=== PATIENT | female | born 1970 | race Caucasian/White ===

== ENCOUNTER → 2016-12-19 | Outpatient (REF) | payer OTHER ==
[~2016-12-19] MED LIST: AUGM875T28 PO; MOTR200T44 PO; OXYC1TAB23 PO; PERI0.126 MT
== END ==
LOC: M LAB REF 17:27
PROVIDERS: ATTEND Internal Medicine
DX: M26.602 Left temporomandibular joint disorder, unspecified (principal); E78.5 Hyperlipidemia, unspecified

== ENCOUNTER → 2018-03-07 | Outpatient (REF) | payer OTHER ==
[2018-03-07 19:08] LABS: RHEUMATOID FACTOR QUANT < 10.0 IU/ML (<15.0)
[2018-03-10 00:06] LABS: ANTI-CHROMATIN ANTIBODIES <0.2 AI (0.0-0.9)
[2018-03-10 00:06] LABS: ANTI DOUBLE STRAND-DNA AB 3 IU/mL (0-9); Lyme Disease IgG/IgM Antibodie <0.91 ISR (0.00-0.90); Lyme Disease IgM Ab Quantitati <0.80 index (0.00-0.79); RNP ANTIBODY 0.9 AI (0.0-0.9); SMITHS ANTIBODY < 0.2 AI (0.0-0.9); SSA SJOGRENS A <0.2 AI (0.0-0.9); SSB SJOGRENS B <0.2 AI (0.0-0.9)
== END ==
LOC: M LAB REF 17:39
DX: M25.50 Pain in unspecified joint (principal)

== ENCOUNTER 2019-02-05 15:43 | Emergency (ER) | payer OTHER ==
[~2019-02-05] VITALS: Ht 160 cm; Wt 93.9 kg
[2019-02-05] MEDS ORDERED: PRED20TA (15:51)
[2019-02-05] MEDS ORDERED: MONT10TA2 (15:51)
[2019-02-05] MEDS ORDERED: ROSU10TA6 (15:51)
[2019-02-05] MEDS ORDERED: PARO12.5 (15:51)
[2019-02-05 16:27] LABS: BASO % 0.3 % (0.0-1.0); EOS % 0.1 % (0.0-3.0); HEMATOCRIT 44.7 % (36.0-47.0); HEMOGLOBIN 15.2 g/dl (12.0-15.5); LYMPH # 1.6 10^3/uL (1.5-5.0); LYMPH % 13.4 % (24.0-44.0); MEAN CORPUSCULAR HEMOGLOBIN 32.5 pg (27.0-33.0); MEAN CORPUSCULAR VOLUME 95.5 fl (80.0-96.0); MONO # 0.5 10^3/uL (0.0-0.8); MONO % 4.3 % (0.0-5.0); NEUTROPHILS # 9.7 10^3/uL (1.5-8.5); NEUTROPHILS % 80.6 % (36.0-66.0); PLATELET COUNT, AUTOMATED 239 10^3/uL (150-450); RED BLOOD COUNT 4.68 10^6/uL (4.00-5.40)
[2019-02-05 16:38] LABS: INR 0.83; PROTHROMBIN TIME 11.1 SECONDS (11.8-14.0)
--- NOTE | 2019-02-05 16:47 | REP ---
Clinical: Acute chest pain . Comparison: None . Technique: PA and lateral. Findings: The mediastinum and cardiac silhouette are normal. The lung soler are clear and without acute consolidation, effusion, or pneumothorax. The skeletal structures are intact and normal. Impression: 1. No acute cardiopulmonary process. Electronically Signed by Tyrese Cornejo MD 02/05/2019 04:39 P
[2019-02-05 16:59] LABS: ALBUMIN 3.6 GM/DL (3.2-5.2); ALT/SGPT 35 U/L (12-78); BILIRUBIN,DIRECT < 0.1 MG/DL (0.0-0.2); BILIRUBIN,TOTAL 0.4 MG/DL (0.2-1.0); BLOOD UREA NITROGEN 20 MG/DL (7-18); CALCIUM LEVEL 9.1 MG/DL (8.5-10.1); CARBON DIOXIDE LEVEL 27 MEQ/L (21-32); CHLORIDE LEVEL 105 MEQ/L (98-107); CK-MB VALUE MASS < 1.0 NG/ML (<3.6); CPK CREATINE PHOSPHOKINASE 58 U/L (26-192); CREATININE FOR GFR 1.12 MG/DL (0.55-1.30); FREE T4 0.81 NG/DL (0.76-1.46); GLOMERULAR FILTRATION RATE 54.8 (>51); GLUCOSE, FASTING 258 MG/DL (70-100); LIPASE 148 U/L (73-393); MB/CK RELATIVE INDEX 1.72 (< OR =4); POTASSIUM SERUM 4.2 MEQ/L (3.5-5.1); SODIUM LEVEL 139 MEQ/L (136-145); THYROID STIMULATING HORMONE 0.953 uIU/ML (0.358-3.740); TOTAL PROTEIN 6.8 GM/DL (6.4-8.2); TROPONIN I < 0.02 NG/ML (< 0.10)
[2019-02-05 17:45] VITALS: BP 119/60
--- NOTE | 2019-02-07 06:47 | ECGEPIP ---
[facility] - ED Test Date: 2019-02-05 Pat Name: TAPAN RAMSEY Department: Room: - Gender: Female Slps: JACE : 1970 Requested By: IRINA Jennings Order Number: [id number] Reading MD: Will Ma Measurements Intervals [place] Rate: 82 P: 42 WA: 145 QRS: 52 QRSD: 85 T: 40 QT: 367 QTc: 429 Interpretive Statements SINUS RHYTHM BENIGN EARLY REPOLARIZATION NO PRIORS FOR COMPARISON Electronically Signed on 02-07-2019 6:46:59 EDT by Will Ma
== END 2019-02-05 18:27 | disposition left against medical advice (07) ==
LOC: M ED 15:43
DX: R07.9 Chest pain, unspecified (principal); Z53.21 Procedure and treatment not carried out due to patient leaving prior to being seen by health care provider

== ENCOUNTER → 2019-02-13 | Outpatient (REF) | payer OTHER ==
[~2019-02-13] MED LIST changes: +MONT10TA2; +PARO12.5; +PRED20TA; +ROSU10TA6
[2019-02-20 00:06] LABS: ANTI DS-DNA AB <1:10 titer (.); ANTI-CHROMATIN ANTIBODIES <0.2 AI (0.0-0.9); RNP ANTIBODY 0.3 AI (0.0-0.9); SMITHS ANTIBODY < 0.2 AI (0.0-0.9); SSA SJOGRENS A <0.2 AI (0.0-0.9); SSB SJOGRENS B <0.2 AI (0.0-0.9)
== END ==
LOC: M LAB REF 17:04
PROVIDERS: ATTEND Internal Medicine
DX: H15.002 Unspecified scleritis, left eye (principal)

== ENCOUNTER → 2019-02-21 | Outpatient (REF) | payer OTHER | LOC: M LAB REF 18:09 | PROVIDERS: ATTEND Internal Medicine | DX: H15.002 Unspecified scleritis, left eye (principal); M25.50 Pain in unspecified joint ==

== ENCOUNTER → 2019-03-11 | Outpatient (REF) | payer OTHER ==
[2019-03-11 22:11] LABS: TOTAL PROTEIN 6.8 GM/DL (6.4-8.2)
[2019-03-11 22:20] LABS: URINE TOTAL PROTEIN 6.4 MG/DL (0-12)
[2019-03-13 10:56] LABS: ALBUMIN 4.17 GM/DL (3.29-5.55)
[2019-03-13 10:57] LABS: ALBUMIN % 61.3 % (55.8-66.1); ALPHA-1-GLOBULIN % 4.9 % (2.9-4.9); ALPHA-1-GLOBULINS 0.33 GM/DL (0.17-0.41); ALPHA-2-GLOBULINS 0.82 GM/DL (0.42-0.99); ALPHA-2-GLOBULINS % 12.1 % (7.1-11.8); BETA-1-GLOBULINS 0.38 GM/DL (0.28-0.60); BETA-2-GLOBULINS 0.32 GM/DL (0.19-0.55); BETA-2-GLOBULINS % 4.7 % (3.2-6.5); GAMMA GLOBULIN % 11.4 % (11.1-18.8); GAMMA GLOBULINS 0.78 GM/DL (0.65-1.58)
[2019-03-13 11:10] LABS: UPEP INTERPRETATION NO M-SPIKE NOTED; URINE VOLUME RANDOM ML
[2019-03-13 14:07] LABS: Lyme Disease IgG/IgM Antibodie <0.91 ISR (0.00-0.90); Lyme Disease IgM Ab Quantitati <0.80 index (0.00-0.79)
== END ==
LOC: M LAB REF 16:28
PROVIDERS: ATTEND Internal Medicine
DX: M25.50 Pain in unspecified joint (principal)

== ENCOUNTER → 2019-05-19 | Outpatient (REF) | payer OTHER | LOC: M LAB REF 16:29 | PROVIDERS: ATTEND Internal Medicine | DX: M25.50 Pain in unspecified joint (principal); H15.002 Unspecified scleritis, left eye ==

== ENCOUNTER → 2019-10-24 | Outpatient (REF) | payer OTHER, BC ==
[~2019-10-24] MED LIST changes: -MONT10TA2; +MONT10TA4; -PARO12.5; +PARO12.510
== END ==
LOC: M LAB REF 17:26
PROVIDERS: ATTEND Internal Medicine
DX: N95.0 Postmenopausal bleeding (principal); Z12.31 Encounter for screening mammogram for malignant neoplasm of breast

== ENCOUNTER → 2019-11-24 | Outpatient (CLI) | payer OTHER, BC | LOC: M LABSMTC 09:56 | PROVIDERS: ATTEND Anesthesiology | DX: Z03.818 Encounter for observation for suspected exposure to other biological agents ruled out (principal); Z11.59 Encounter for screening for other viral diseases | CPT/HCPCS: C9803; U0003 ==

== ENCOUNTER 2019-11-27 13:28 | Day surgery (SDC) | payer OTHER, BC ==
[~2019-11-27] VITALS: Ht 160 cm; Wt 91.2 kg
[~2019-11-27 13:28] MED LIST changes: +LIDOCAINE 2% 100MG/5ML SDV (FOR ANES.) As Ordered ONE; +LR 1,000 ML IV ONE; +MIDAZOLAM INJ 2MG/2ML VIAL (J2250 PER 1MG) As Ordered ONE; +fentaNYL 100 MCG/2 ML INJECTION (J3010) As Ordered ONE; +propofoL 200 MG/20 ML VIAL As Ordered ONE
[2019-11-27 14:33] LABS: HEMATOCRIT 49.1 % (36.0-47.0); HEMOGLOBIN 16.4 g/dl (12.0-15.5); MEAN CORPUSCULAR HEMOGLOBIN 31.3 pg (27.0-33.0); MEAN CORPUSCULAR HGB CONC 33.4 g/dl (32.0-36.5); MEAN CORPUSCULAR VOLUME 93.7 fl (80.0-96.0); PLATELET COUNT, AUTOMATED 216 10^3/uL (150-450); RED BLOOD COUNT 5.24 10^6/uL (4.00-5.40); WHITE BLOOD COUNT 8.7 10^3/uL (4.0-10.0)
[2019-11-27 14:44] LABS: BLOOD UREA NITROGEN 11 MG/DL (7-18); CALCIUM LEVEL 9.3 MG/DL (8.5-10.1); CARBON DIOXIDE LEVEL 26 MEQ/L (21-32); CHLORIDE LEVEL 106 MEQ/L (98-107); CREATININE FOR GFR 0.84 MG/DL (0.55-1.30); GLOMERULAR FILTRATION RATE > 60.0 (>51); GLUCOSE, FASTING 90 MG/DL (70-100); POTASSIUM SERUM 4.1 MEQ/L (3.5-5.1); SODIUM LEVEL 140 MEQ/L (136-145)
[2019-11-27] MEDS ORDERED: CHLOROPROCAINE PRES. FREE 3% 20ML VIAL As Ordered ONE (15:19)
[2019-11-27] MEDS ORDERED: KETOROLAC 60MG 2ML VIAL As Ordered ONE (15:44)
[2019-11-27] MEDS ORDERED: ONDANSETRON 4MG/2ML VIAL As Ordered ONE (15:44)
[2019-11-27] MEDS ORDERED: fentaNYL 100 MCG/2 ML INJECTION (J3010) IV PRN (16:30)
[2019-11-27] MEDS ORDERED: LR 1,000 ML IV SCH ×2 (16:30)
[2019-11-27] MEDS ORDERED: IBUPROFEN 600MG TAB PO PRN (16:30)
[2019-11-27] MEDS ORDERED: PERCOCET 5MG/325MG TAB PO PRN (16:30)
[2019-11-27] MEDS ORDERED: ONDANSETRON 4MG/2ML VIAL IV PRN (16:30)
[2019-11-27] MEDS ORDERED: METOCLOPRAMIDE INJ 10MG/2ML VIAL (J2765 PER 1) IV PRN (16:30)
[2019-11-27 18:20] VITALS: BP 140/81
--- NOTE | 2019-11-28 17:18 | ECGEPIP ---
[facility] Test Date: 2019-11-27 Pat Name: TAPAN RAMSEY Department: Room: - Gender: Female Body Care Manager: NELIDA : 1970 Requested By: Sebastian Singleton Order Number: [id number] Reading MD: Giovani Mojica Measurements Intervals [place] Rate: 69 P: 37 SD: 158 QRS: 28 QRSD: 76 T: 29 QT: 403 QTc: 435 Interpretive Statements SINUS RHYTHM Last tracing on 02/05/19, 16:01. NO SIGNIFICANT CHANGES Electronically Signed on 11-28-2019 17:18:03 EDT by Giovani Mojica
--- NOTE | 2019-12-02 18:19 | RO ---
DATE OF PROCEDURE: 11/27/2019 PREOPERATIVE DIAGNOSIS: Postmenopausal bleeding, abnormal sono. POSTOPERATIVE DIAGNOSIS: Polyp. PROCEDURE: Dilation and curettage (D and C), hysteroscopy, MyoSure resection with complete removal of the polyp. SURGEON: Dr. Corinne Stack COFFEE URN ATTENDANT: None. ANESTHESIA: Spinal. DESCRIPTION OF PROCEDURE: Colin was brought to the operating room where sufficient spinal anesthesia was induced, and she was prepped, draped and positioned in the usual sterile fashion. With the bladder emptied and the Wai retractor placed so the cervix could be visualized, grasped with a single-tooth tenaculum and then this retroverted uterus was carefully dilated and the hysteroscope placed. Visualization of the endometrial cavity showed, as noted on the pictures, a lingular polyp that arose from the anterior left fundal uterus but essentially filled the cavity at the corpus. And using the MyoSure Resector Reach, we were able to completely remove this and sample the endometrium circumferentially and then, of course, we passed the curette for curettage as well. She had normal tubal ostia and a normal contour within the uterus and no other visible lesions, and after the resection and the curettage, the procedure was ended. Estimated blood loss for the procedure was maybe 5 mL. Fluid replacement was crystalloid. Specimens: The polyp and the endometrial sampling were all sent for pathologic evaluation. Complications: None. Condition and Disposition: Colin tolerated the procedure well and was recovering in the recovery room in good condition.
== END 2019-11-27 18:25 | disposition home or self-care (01) ==
LOC: M SDC 13:28
PROVIDERS: ATTEND Obstetrics & Gynecology
DX: N85.01 Benign endometrial hyperplasia (principal); N95.0 Postmenopausal bleeding
CPT/HCPCS: 36415; 58558; 80048; 81025; 85027; 88305; 93005; J1885; J2250; J2400; J2405; J3010

== ENCOUNTER → 2021-05-24 | Outpatient (REF) | payer OTHER, BC ==
[~2021-05-24] MED LIST changes: -LIDOCAINE 2% 100MG/5ML SDV (FOR ANES.) As Ordered ONE; -LR 1,000 ML IV ONE; -MIDAZOLAM INJ 2MG/2ML VIAL (J2250 PER 1MG) As Ordered ONE; +MONT10TA10; -MONT10TA4; -fentaNYL 100 MCG/2 ML INJECTION (J3010) As Ordered ONE; -propofoL 200 MG/20 ML VIAL As Ordered ONE
[2021-05-24 17:54] LABS: ESTRADIOL 83.5 PG/ML; FOLLICLE STIMULATING HORMONE 21.9 mIU/mL; LUTEINIZING HORMONE 14.4 mIU/mL; PROGESTERONE 14.11 NG/ML
[2021-05-26 18:08] LABS: TESTOSTERONE FREE (DIRECT) 2.9 pg/mL (0.0-4.2)
== END ==
LOC: M LAB REF 16:33
PROVIDERS: ATTEND Obstetrics & Gynecology
DX: E34.9 Endocrine disorder, unspecified (principal); F52.0 Hypoactive sexual desire disorder; N95.1 Menopausal and female climacteric states

== ENCOUNTER → 2021-08-11 | Outpatient (CLI) | payer OTHER ==
[~2021-08-11] MED LIST changes: +E-Z-GAS II EFFERVESCENT PACKET (SODIUM BICARB./CITRIC ACID/SIMETHICONE) As Ordered ONE; +E-Z-HD 98% w/w 340GM SUSP BTL As Ordered ONE; +E-Z-PAQUE 96% w/w SUSP 176GM BTL As Ordered ONE; -MONT10TA10; +MONT10TA97; -PARO12.510; +PARO12.56
== END ==
LOC: M RAD 07:49
PROVIDERS: ATTEND Internal Medicine
DX: R13.10 Dysphagia, unspecified (principal); K21.9 Gastro-esophageal reflux disease without esophagitis

== ENCOUNTER → 2022-03-23 | Outpatient (CLI) | payer OTHER ==
[~2022-03-23] MED LIST changes: -E-Z-GAS II EFFERVESCENT PACKET (SODIUM BICARB./CITRIC ACID/SIMETHICONE) As Ordered ONE; -E-Z-HD 98% w/w 340GM SUSP BTL As Ordered ONE; -E-Z-PAQUE 96% w/w SUSP 176GM BTL As Ordered ONE
== END ==
LOC: M RAD 14:22
PROVIDERS: ATTEND Obstetrics & Gynecology
DX: N95.0 Postmenopausal bleeding (principal)

== ENCOUNTER → 2022-06-06 | Outpatient (REF) | payer OTHER | LOC: M LAB REF 16:26 | PROVIDERS: ATTEND Obstetrics & Gynecology | DX: Z09 Encounter for follow-up examination after completed treatment for conditions other than malignant neoplasm (principal) ==

== ENCOUNTER → 2023-10-15 | Outpatient (REF) | payer OTHER ==
[~2023-10-15] MED LIST changes: -ROSU10TA6; +ROSU10TA61
[2023-10-19 00:07] LABS: ANTI DS-DNA AB Negative (Negative); ANTI-CHROMATIN ANTIBODIES <0.2 AI (0.0-0.9); ANTINUCLEAR ANTIBODIES DIRECT Negative (Negative); CYCLIC CITRULLINATED PEPTIDE 5 units (0-19); RNP ANTIBODIES 0.8 AI (0.0-0.9); SJOGREN'S ANTI SS-A <0.2 AI (0.0-0.9); SJOGREN'S ANTI SS-B <0.2 AI (0.0-0.9); SMITH ANTIBODIES <0.2 AI (0.0-0.9)
== END ==
LOC: M LAB REF 16:12
PROVIDERS: ATTEND Internal Medicine
DX: M25.50 Pain in unspecified joint (principal)

== ENCOUNTER → 2024-01-02 | Outpatient (CLI) | payer OTHER | LOC: M RAD 16:21 | PROVIDERS: ATTEND Internal Medicine | DX: Z12.2 Encounter for screening for malignant neoplasm of respiratory organs (principal); F17.210 Nicotine dependence, cigarettes, uncomplicated; J43.9 Emphysema, unspecified; J98.11 Atelectasis ==

== ENCOUNTER → 2024-06-03 | Outpatient (CLI) | payer OTHER | LOC: M RAD 11:11 | PROVIDERS: ATTEND Internal Medicine | DX: R91.8 Other nonspecific abnormal finding of lung field (principal) ==

== ENCOUNTER → 2025-02-04 | Outpatient (CLI) | payer OTHER | LOC: M RAD 09:20 | PROVIDERS: ATTEND Internal Medicine | DX: F10.10 Alcohol abuse, uncomplicated (principal); Z90.49 Acquired absence of other specified parts of digestive tract; K76.89 Other specified diseases of liver ==

== ENCOUNTER → 2025-04-03 | Outpatient (CLI) | payer OTHER ==
[~2025-04-03] MED LIST changes: +GADOXETATE DISODIUM 2.5 MMOL/10 ML VIAL ONE; -ROSU10TA61; +ROSU10TA90
== END ==
LOC: M PLAIMG 12:38
PROVIDERS: ATTEND Internal Medicine
DX: K74.60 Unspecified cirrhosis of liver (principal)
CPT/HCPCS: 74183; A9581